=== PATIENT | male | born 1980 | race Caucasian/White ===

== ENCOUNTER 2021-09-20 10:25 | Emergency (ER) | payer SELFPAY | END 2021-09-20 12:25 | disposition home or self-care (01) | LOC: JD.ED 10:25 | DX: S40.012A Contusion of left shoulder, initial encounter (principal); Z87.891 Personal history of nicotine dependence; W18.30XA Fall on same level, unspecified, initial encounter | CPT/HCPCS: 73030-26-LT; 73030-LT; 99283-25 ==